=== PATIENT | male | born 2000 | race Native Hawaiian/Other Pacific Islander ===

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

== ENCOUNTER 2019-03-25 18:40 | Emergency (ER) | payer OTHER ==
[~2019-03-25] VITALS: Ht 188 cm; Wt 111.1 kg
[2019-03-25 19:42] LABS: PLATELET COUNT 222 K/uL (142-355)
[2019-03-25 20:46] LABS: POTASSIUM 3.6 mmol/L (3.6-5.2)
[2019-03-25 21:27] VITALS: BP 142/74; TEMP 98.1
== END 2019-03-25 21:27 | disposition home or self-care (01) ==
LOC: ED 18:40
PROVIDERS: Family Medicine
DX: K52.9 Noninfective gastroenteritis and colitis, unspecified (principal); E86.0 Dehydration
CPT/HCPCS: 36415; 80053; 85027; 96360; 96375; 99284; J2405

== ENCOUNTER 2019-04-15 08:24 | Emergency (ER) | payer OTHER ==
[~2019-04-15] VITALS: Ht 188 cm; Wt 103.0 kg
[2019-04-15 08:45] VITALS: TEMP 98.2
[2019-04-15 09:06] LABS: PLATELET COUNT 238 K/uL (142-355)
[2019-04-15 09:19] LABS: POTASSIUM 5.5 mmol/L (3.6-5.2)
[2019-04-15 09:49] VITALS: BP 146/91
== END 2019-04-15 10:16 | disposition home or self-care (01) ==
LOC: ED 08:24
PROVIDERS: Hospitalist
DX: R19.7 Diarrhea, unspecified (principal); K52.9 Noninfective gastroenteritis and colitis, unspecified; R11.2 Nausea with vomiting, unspecified
CPT/HCPCS: 36415; 80053; 81000; 82150; 83690; 85027; 96365; 96375; 99284; J2405

== ENCOUNTER 2019-04-18 20:51 | Emergency (ER) | payer OTHER ==
[~2019-04-18] VITALS: Ht 188 cm; Wt 96.2 kg
[2019-04-18 21:35] LABS: PLATELET COUNT 237 K/uL (142-355)
[2019-04-18 21:40] LABS: POTASSIUM 3.9 mmol/L (3.6-5.2)
[2019-04-18] MEDS ORDERED: TRUVADA PO (22:30)
[2019-04-19 00:12] VITALS: BP 126/72; TEMP 97.7
== END 2019-04-19 00:21 | disposition home or self-care (01) ==
LOC: ED 20:51
PROVIDERS: Emergency Medicine
DX: K52.9 Noninfective gastroenteritis and colitis, unspecified (principal)
CPT/HCPCS: 36415; 80053; 85027; 96360; 96365; 96375; 99284; J0744; J2405; J2550; Q9963

== ENCOUNTER 2019-04-20 20:24 | Emergency (ER) | payer OTHER ==
[~2019-04-20] VITALS: Ht 188 cm; Wt 109.9 kg
[~2019-04-20 20:24] MED LIST changes: +TRUVADA PO
[2019-04-20 20:40] VITALS: BP 140/83; TEMP 97.7
[2019-04-20 22:19] LABS: PLATELET COUNT 206 K/uL (142-355)
[2019-04-20 22:28] LABS: POTASSIUM 4.1 mmol/L (3.6-5.2)
== END 2019-04-21 00:33 | disposition home or self-care (01) ==
LOC: ED 20:24
PROVIDERS: Family Medicine
DX: K52.9 Noninfective gastroenteritis and colitis, unspecified (principal); E86.0 Dehydration
CPT/HCPCS: 80053; 85027; 96360; 96375; 99284; J2405

== ENCOUNTER 2019-04-28 10:01 | Emergency (ER) | payer OTHER ==
[~2019-04-28] VITALS: Ht 188 cm; Wt 109.8 kg
[2019-04-28 11:35] VITALS: BP 143/78; TEMP 97.7
== END 2019-04-28 11:40 | disposition home or self-care (01) ==
LOC: ED 10:01
DX: J02.9 Acute pharyngitis, unspecified (principal)
CPT/HCPCS: 87502; 87651; 99283

== ENCOUNTER 2019-05-28 20:39 | Emergency (ER) | payer OTHER ==
[~2019-05-28] VITALS: Ht 188 cm; Wt 91.6 kg
[2019-05-28 22:30] VITALS: BP 155/74; TEMP 98.4
== END 2019-05-28 22:30 | disposition home or self-care (01) ==
LOC: ED 20:39
DX: B34.9 Viral infection, unspecified (principal); J40 Bronchitis, not specified as acute or chronic
CPT/HCPCS: 87502; 87651; 94664; 99283

== ENCOUNTER 2019-05-30 13:11 | Emergency (ER) | payer OTHER ==
[~2019-05-30] VITALS: Ht 185.4 cm; Wt 104.8 kg
[2019-05-30 14:13] LABS: PLATELET COUNT 205 K/uL (142-355)
[2019-05-30 14:19] LABS: POTASSIUM 3.4 mmol/L (3.6-5.2)
[2019-05-30 15:37] VITALS: BP 144/93; TEMP 97.7
== END 2019-05-30 15:39 | disposition home or self-care (01) ==
LOC: ED 13:11
PROVIDERS: Emergency Medicine
DX: R11.2 Nausea with vomiting, unspecified (principal); R07.89 Other chest pain
CPT/HCPCS: 36415; 80053; 85027; 93005; 96360; 96374; 96375; 99284; J2405

== ENCOUNTER 2019-10-01 21:59 | Emergency (ER) | payer OTHER ==
[~2019-10-01] VITALS: Ht 185.4 cm; Wt 104.8 kg
[2019-10-01 23:04] LABS: PLATELET COUNT 222 K/uL (142-355)
[2019-10-01 23:17] LABS: POTASSIUM 3.7 mmol/L (3.6-5.2)
[2019-10-02 00:42] VITALS: BP 140/64; TEMP 98.3
== END 2019-10-02 00:42 | disposition home or self-care (01) ==
LOC: ED 21:59
PROVIDERS: Emergency Medicine
DX: B34.9 Viral infection, unspecified (principal)
CPT/HCPCS: 36415; 80053; 81000; 85027; 87502; 87651; 96360; 99284

== ENCOUNTER 2019-11-05 21:55 | Emergency (ER) | payer OTHER ==
[~2019-11-05] VITALS: Ht 185.4 cm; Wt 104.8 kg
[2019-11-05 23:55] VITALS: BP 133/70; TEMP 98.6
== END 2019-11-05 23:55 | disposition short-term general hospital (02) ==
LOC: ED 21:55
DX: S39.94XA Unspecified injury of external genitals, initial encounter (principal); W23.0XXA Caught, crushed, jammed, or pinched between moving objects, initial encounter; Y93.31 Activity, mountain climbing, rock climbing and wall climbing
CPT/HCPCS: 96372; 99283; J1885

== ENCOUNTER 2019-11-20 17:35 | Emergency (ER) | payer OTHER ==
[~2019-11-20] VITALS: Ht 185.4 cm; Wt 106.6 kg
[2019-11-20 19:20] VITALS: BP 141/84; TEMP 98.5
== END 2019-11-20 19:41 | disposition home or self-care (01) ==
LOC: ED 17:35
PROC: 2W2KX4Z Dressing of Left Finger using Bandage (ICD-10-PCS; principal; 2019-11-20)
DX: T23.222A Burn of second degree of single left finger (nail) except thumb, initial encounter (principal); T31.0 Burns involving less than 10% of body surface; X15.0XXA Contact with hot stove (kitchen), initial encounter
CPT/HCPCS: 99283

== ENCOUNTER 2019-11-21 11:51 | Emergency (ER) | payer OTHER ==
[~2019-11-21] VITALS: Ht 185.4 cm; Wt 106.6 kg
[2019-11-21 12:05] VITALS: BP 153/87; TEMP 98.5
== END 2019-11-21 12:35 | disposition home or self-care (01) ==
LOC: ED 11:51
DX: Z48.00 Encounter for change or removal of nonsurgical wound dressing (principal)
CPT/HCPCS: 99281

== ENCOUNTER 2020-01-22 20:12 | Emergency (ER) | payer OTHER ==
[~2020-01-22] VITALS: Ht 185.4 cm; Wt 106.6 kg
[2020-01-22 21:35] VITALS: BP 138/89; TEMP 98.1
== END 2020-01-22 21:35 | disposition home or self-care (01) ==
LOC: ED 20:12
DX: S66.811A Strain of other specified muscles, fascia and tendons at wrist and hand level, right hand, initial encounter (principal); X50.9XXA Other and unspecified overexertion or strenuous movements or postures, initial encounter; Y92.89 Other specified places as the place of occurrence of the external cause
CPT/HCPCS: 99282

== ENCOUNTER 2022-01-10 22:55 | Emergency (ER) | payer OTHER ==
[~2022-01-10] VITALS: Ht 188 cm; Wt 103.9 kg
[2022-01-11 00:28] VITALS: BP 134/86; TEMP 97.9
== END 2022-01-11 00:28 | disposition home or self-care (01) ==
LOC: ED 22:55
DX: S60.221A Contusion of right hand, initial encounter (principal); S63.8X1A Sprain of other part of right wrist and hand, initial encounter; W22.8XXA Striking against or struck by other objects, initial encounter; Y92.89 Other specified places as the place of occurrence of the external cause
CPT/HCPCS: 96372; 99283; J1885

== ENCOUNTER 2022-04-28 16:53 | Emergency (ER) | payer OTHER ==
[~2022-04-28] VITALS: Ht 188 cm; Wt 90.7 kg
[2022-04-28 18:44] VITALS: BP 155/91; TEMP 98.9
== END 2022-04-28 18:47 | disposition home or self-care (01) ==
LOC: ED 16:53
DX: S20.211A Contusion of right front wall of thorax, initial encounter (principal); S29.011A Strain of muscle and tendon of front wall of thorax, initial encounter; W01.198A Fall on same level from slipping, tripping and stumbling with subsequent striking against other object, initial encounter; Y92.89 Other specified places as the place of occurrence of the external cause
CPT/HCPCS: 93005; 99283

== ENCOUNTER 2022-08-13 11:08 | Emergency (ER) | payer OTHER ==
[~2022-08-13] VITALS: Ht 188 cm; Wt 93.9 kg
[2022-08-13 11:32] VITALS: BP 153/80; TEMP 98.6
== END 2022-08-13 14:03 | disposition home or self-care (01) ==
LOC: ED 11:08
DX: B34.9 Viral infection, unspecified (principal); Z20.822 Contact with and (suspected) exposure to COVID-19
CPT/HCPCS: 87502; 87635; 96372; 99282; J1100; U0003

== ENCOUNTER 2022-10-19 16:35 | Emergency (ER) | payer OTHER ==
[~2022-10-19] VITALS: Ht 188 cm; Wt 90.7 kg
[2022-10-19 16:38] VITALS: BP 156/97; TEMP 97.2
[2022-10-19 17:17] LABS: PLATELET COUNT 245 K/uL (142-355)
[2022-10-19 17:28] LABS: POTASSIUM 3.5 mmol/L (3.6-5.2)
[2022-10-19 17:30] LABS: PARTIAL THROMBOPLASTIN TIME 24.6 SECONDS (24.5-33.6)
== END 2022-10-19 18:27 | disposition home or self-care (01) ==
LOC: ED 16:35
PROVIDERS: Emergency Medicine
DX: R31.9 Hematuria, unspecified (principal)
CPT/HCPCS: 36415; 80053; 81000; 85027; 85610; 85730; 96374; 96375; 99284; J1885; J2405

== ENCOUNTER 2022-11-30 13:52 | Emergency (ER) | payer OTHER ==
[~2022-11-30] VITALS: Ht 188 cm; Wt 95.3 kg
[2022-11-30 13:55] VITALS: BP 145/89; TEMP 98.8
[2022-11-30 14:29] LABS: PLATELET COUNT 211 K/uL (142-355)
[2022-11-30 14:44] LABS: POTASSIUM 3.6 mmol/L (3.6-5.2)
== END 2022-11-30 15:18 | disposition home or self-care (01) ==
LOC: ED 13:52
PROVIDERS: Emergency Medicine
DX: B34.9 Viral infection, unspecified (principal)
CPT/HCPCS: 80048; 85027; 87651; 99283

== ENCOUNTER 2022-12-02 18:13 | Emergency (ER) | payer OTHER ==
[~2022-12-02] VITALS: Ht 188 cm; Wt 95.3 kg
[2022-12-02 19:04] LABS: PLATELET COUNT 226 K/uL (142-355)
[2022-12-02 19:13] LABS: POTASSIUM 3.7 mmol/L (3.6-5.2)
[2022-12-02 20:45] VITALS: BP 129/89; TEMP 98
== END 2022-12-02 20:45 | disposition home or self-care (01) ==
LOC: ED 18:13
PROVIDERS: Emergency Medicine
DX: R06.02 Shortness of breath (principal)
CPT/HCPCS: 80048; 84484; 85027; 85379; 93005; 99283

== ENCOUNTER 2022-12-18 17:24 | Emergency (ER) | payer OTHER ==
[~2022-12-18] VITALS: Ht 188 cm; Wt 95.3 kg
[2022-12-18 18:00] VITALS: BP 134/71; TEMP 98.1
== END 2022-12-18 18:00 | disposition home or self-care (01) ==
LOC: ED 17:24
PROC: 0HQ1XZZ Repair Face Skin, External Approach (ICD-10-PCS; principal; 2022-12-18)
DX: S01.412A Laceration without foreign body of left cheek and temporomandibular area, initial encounter (principal); W45.8XXA Other foreign body or object entering through skin, initial encounter; Y92.89 Other specified places as the place of occurrence of the external cause
CPT/HCPCS: 99282